=== PATIENT | female | born 1955 | race Caucasian/White ===

== ENCOUNTER → 2016-03-01 | Outpatient (CLI) | payer BC, OTHER ==
[~2016-03-01] MED LIST: CALCIUM/MAGNESIUM PO; CEFTIN 250250 MG/TAB PO; CELEXA 20MG20 MG/TAB PO; FISH OIL1000 MG PO; GLUCOPHAGE500 MG/TAB PO; NORCO 325 MG-51 TAB PO
== END ==
LOC: COL.RAD 14:20
DX: M25.551 Pain in right hip (principal)
CPT/HCPCS: J3301

== ENCOUNTER → 2016-04-15 | Outpatient (CLI) | payer BC, OTHER | LOC: COL.RAD 14:11 | DX: M25.551 Pain in right hip (principal); S73.191A Other sprain of right hip, initial encounter; X58.XXXA Exposure to other specified factors, initial encounter; M70.61 Trochanteric bursitis, right hip | CPT/HCPCS: A9585; Q9967 ==

== ENCOUNTER → 2016-06-14 | Outpatient (CLI) | payer BC, OTHER | LOC: MC.RAD 16:00 | DX: Z12.31 Encounter for screening mammogram for malignant neoplasm of breast (principal) ==

== ENCOUNTER → 2017-09-05 | Outpatient (CLI) | payer BC, OTHER | LOC: MC.RAD 08:00 | DX: Z12.31 Encounter for screening mammogram for malignant neoplasm of breast (principal) ==

== ENCOUNTER → 2018-12-25 | Outpatient (CLI) | payer BC, OTHER | LOC: MC.RAD 15:30 | DX: Z12.31 Encounter for screening mammogram for malignant neoplasm of breast (principal); N64.89 Other specified disorders of breast ==

== ENCOUNTER → 2019-01-01 | Outpatient (CLI) | payer BC, OTHER | LOC: MC.RAD 08:00 | DX: N63.23 Unspecified lump in the left breast, lower outer quadrant (principal); N64.89 Other specified disorders of breast ==

== ENCOUNTER → 2019-07-01 | Outpatient (CLI) | payer BC, OTHER | LOC: DIA.ED 09:30 | DX: E11.9 Type 2 diabetes mellitus without complications (principal); Z79.84 Long term (current) use of oral hypoglycemic drugs; E66.8 Other obesity | CPT/HCPCS: G0108 ==

== ENCOUNTER → 2020-02-17 | Outpatient (CLI) | payer MEDICARE, BC, OTHER | LOC: MC.RAD 08:45 | DX: Z12.31 Encounter for screening mammogram for malignant neoplasm of breast (principal) ==

== ENCOUNTER → 2020-06-23 | Outpatient (CLI) | payer MEDICARE, BC, OTHER | LOC: COL.RAD 12:48 | DX: M25.551 Pain in right hip (principal) | CPT/HCPCS: J3301; Q9967 ==

== ENCOUNTER → 2023-12-04 | Outpatient (CLI) | payer MEDICARE, BC, OTHER | LOC: DIA.ED 12:13 | DX: E11.9 Type 2 diabetes mellitus without complications (principal); E78.5 Hyperlipidemia, unspecified; Z79.84 Long term (current) use of oral hypoglycemic drugs | CPT/HCPCS: G0108 ==

== ENCOUNTER → 2023-12-20 | Outpatient (CLI) | payer MEDICARE, BC | LOC: MC.RAD 09:00 | DX: Z12.31 Encounter for screening mammogram for malignant neoplasm of breast (principal) ==